=== PATIENT | male | born 1965 | race Caucasian/White ===

== ENCOUNTER 2021-02-28 15:56 | Outpatient (CLI) | payer BC, SELFPAY | END 2021-02-28 15:57 | disposition home or self-care (01) | LOC: ANHCOVIDVC 15:56 | PROVIDERS: PCP Internal Medicine | DX: Z23 Encounter for immunization (principal) | CPT/HCPCS: 0001A; 91300 ==

== ENCOUNTER 2021-03-21 16:00 | Outpatient (CLI) | payer BC, SELFPAY | END 2021-03-21 16:01 | disposition home or self-care (01) | LOC: ANHCOVIDVC 16:00 | PROVIDERS: PCP Internal Medicine | DX: Z23 Encounter for immunization (principal) | CPT/HCPCS: 0002A; 91300 ==